=== PATIENT | male | born 1995 | race Caucasian/White ===

== ENCOUNTER 2018-04-15 18:07 | Emergency (ER) | payer BC ==
[~2018-04-15] VITALS: Ht 185.4 cm; Wt 65.5 kg
[~2018-04-15 18:07] MED LIST: ULTRAM50 MG PO
[2018-04-15 19:38] LABS: HEMATOCRIT 42.1 % (38.0-50.0); HEMOGLOBIN 15.1 G/DL (12.5-16.6); MCHC 35.9 G/DL (30.0-36.0); MCV 83.7 FL (86-99); PLATELET COUNT 176 K/uL (156-360); RBC DIS.WIDTH-CV 11.6 % (11.8-14.6); RBC DIS.WIDTH-SD 35.2 % (39-53); RED BLOOD COUNT 5.03 M/uL (4.00-5.50); WHITE BLOOD COUNT 15.2 K/uL (4.1-10.2)
[2018-04-15 19:45] LABS: CHLORIDE 108 mEq/L (99-109); POTASSIUM 3.6 mEq/L (3.7-5.4); SODIUM 140 mEq/L (136-147)
[2018-04-15 19:47] LABS: GLUCOSE 109 mg/dL (70-99)
[2018-04-15 19:51] LABS: CREATININE 1.1 mg/dL (0.6-1.3); GFR ESTIMATE (CALCULATED) > 59 mL/min/ (58.99-99999)
[2018-04-15 19:52] LABS: UREA NITROGEN (BUN) 15 mg/dL (9-23)
[2018-04-15 22:12] LABS: APPEARANCE CLEAR ((CLEAR)); BILIRUBIN NEGATIVE; BLOOD NEGATIVE; COLOR YELLOW ((YELLOW)); GLUCOSE (STRIP) 150; KETONES 20; LEUKOCYTES NEGATIVE; NITRITE NEGATIVE; PROTEIN (STRIP) 30; SPECIFIC GRAVITY 1.021 (1.000-1.030); UCUL ADDED? NO
[2018-04-15 22:20] LABS: AMPHETAMINE PRESUMPTIVE POSITIVE (500 ng/mL); BARBITURATES NEGATIVE (200 ng/mL); BENZODIAZEPINES NEGATIVE (150 ng/mL); BUPRENORPHINE NEGATIVE (10 ng/mL); COCAINE NEGATIVE (150 ng/mL); METHADONE NEGATIVE (200 ng/mL); METHAMPHETAMINE NEGATIVE (500 ng/mL); OPIATES (MORPHINE) NEGATIVE (100 ng/mL); OXYCODONE NEGATIVE (100 ng/mL); PHENCYCLIDINE NEGATIVE (25 ng/mL); PROPOXYPHENE NEGATIVE (300 ng/mL); THC CANNABINOIDS PRESUMPTIVE POSITIVE (50 ng/mL); TRICYCLIC ANTIDEPRESSANTS NEGATIVE (300 ng/mL)
[2018-04-16] VITALS: BP 112/76
== END 2018-04-16 | disposition home or self-care (01) ==
LOC: EME 18:07
PROVIDERS: Emergency Medicine
DX: T40.5X1A Poisoning by cocaine, accidental (unintentional), initial encounter (principal); F90.9 Attention-deficit hyperactivity disorder, unspecified type; F14.10 Cocaine abuse, uncomplicated; F19.10 Other psychoactive substance abuse, uncomplicated
CPT/HCPCS: 71045; 80048; 81003; 84999; 85027; 93005; 99281; 99284; J2405; J7030

== ENCOUNTER 2018-04-20 17:50 | Emergency (ER) | payer BC ==
[~2018-04-20] VITALS: Ht 185.4 cm; Wt 66.5 kg
[2018-04-20] MEDS ORDERED: TYLENOL WITH C1 EACH PO (19:15)
[2018-04-20] MEDS ORDERED: MOTRIN600 MG PO (19:15)
[2018-04-20 19:34] VITALS: BP 125/63
== END 2018-04-20 19:36 | disposition home or self-care (01) ==
LOC: EME 17:50 → RME 17:50
DX: S92.811A Other fracture of right foot, initial encounter for closed fracture (principal); X50.1XXA Overexertion from prolonged static or awkward postures, initial encounter; Y93.67 Activity, basketball
CPT/HCPCS: 73610; 73630; 99281; 99284